=== PATIENT | male | born 1945 | race Caucasian/White ===

== ENCOUNTER 2018-11-20 10:52 | Inpatient (IN) | payer MEDICARE, OTHER ==
[~2018-11-20] VITALS: Ht 186.7 cm; Wt 100.7 kg
[2018-11-20] MEDS: SODIUM CHLORIDE 0.9% 1000ML 1,000 ML IV SCH ×2 (01:00→14:51)
[~2018-11-20 10:52] MED LIST: ADULT LOW DOSE81 MG PO; ANDROGEL 1.62% TD; ATENOLOL25 MG PO; BENICAR HCT 201 EACH PO; BENICAR20 MG PO; CALCIUM600 MG PO; FOLIC ACID0.8 MG PO; GLIPIZIDE XL10 MG PO; GLIPIZIDE10 MG PO; METFORMIN HCL1000 MG PO; PRAVASTATIN SOD20 MG PO; PRAVASTATIN SOD40 MG PO; VIAGRA100 MG PO; VITAMIN A8000 UNIT PO; VITAMIN B-12500 MCG PO; VITAMIN C500 M1 PO; VITAMIN D400 UNI1 PO; VITAMIN E800 UNIT PO; ZINC50 M2 PO
[2018-11-20] MEDS ORDERED: SODIUM CHLORIDE 0.9% 1000ML 1,000 ML IV STA (10:55)
[2018-11-20] MEDS ORDERED: ASPIRIN 81 MG CHEW TAB PO ONE (11:00)
--- NOTE | 2018-11-20 11:53 | Diagnostic Imaging Report ---
A single frontal view of the chest. HISTORY: Fall, vertigo, nausea COMPARISON: None available. DISCUSSION: Portable technique, limits sensitivity of the exam. Overlying artifact. Tubes/Lines: None Lungs and pleura: The lungs are well inflated. No evidence of a consolidative pneumonia or pulmonary alveolar edema. No definite pleural effusion or pneumothorax is identified. Heart and mediastinum: The cardiomediastinal silhouette appear(s) unremarkable. Bones and soft tissues: Appear unremarkable, given this limited exam. IMPRESSION: No acute radiographic abnormality. Signed by: Dr. Arash Cifuentes D.O., M.M.M. on 11/20/2018 11:49 AM
[2018-11-20] MEDS ORDERED: MECLIZINE HCL 12.5 MG TAB PO ONE (12:00)
[2018-11-20] MEDS ORDERED: ONDANSETRON HCL INJ 2MG/ML 2ML 2 MG/ML VIAL IV ONE (12:00)
[2018-11-20 12:22] LABS: BASOPHILS % 0.2 % (0.0-1.0); EOSINOPHILS # (AUTO) 0.1 (0.0-0.4); EOSINOPHILS % 0.9 % (0.0-6.0); HEMATOCRIT 38.3 % (38.2-49.6); HEMOGLOBIN 13.6 g/dL (14.0-18.0); LYMPHOCYTES # (AUTO) 1.4 (1.0-3.2); LYMPHOCYTES % 11.5 % (18.0-39.1); MEAN CORPUSCULAR HEMOGLOBIN 33.3 pg (28-32); MEAN CORPUSCULAR HGB CONC 35.5 g/dL (31-35); MEAN CORPUSCULAR VOLUME 93.6 fL (81-99); MONOCYTES % 7.6 % (4.4-11.3); NEUTROPHILS % 79.4 % (38.7-80.0); PLATELET COUNT 214 x10e3/uL (140-360); RED BLOOD COUNT 4.09 x10e6/uL (4.3-5.7); RED CELL DISTRIBUTION WIDTH 13.2 % (11.7-14.4)
[2018-11-20 12:32] LABS: ALBUMIN/GLOBULIN RATIO 1.4 (0.8-2.0); ANION GAP 19.3 mmol/L (8-16); CREATININE, SERUM 1.27 mg/dL (0.72-1.25); POTASSIUM 4.3 mmol/L (3.5-5.1)
[2018-11-20 12:51] LABS: INR 0.96; PROTHROMBIN TIME 13.3 seconds (11.9-14.5)
[2018-11-20 12:52] LABS: PARTIAL THROMBOPLASTIN TIME 28.9 seconds (23.8-35.5)
[2018-11-20 13:14] LABS: CREATINE KINASE MB 1.6 ng/mL (0-5.0)
--- NOTE | 2018-11-20 13:37 | NUR ---
DR. SALCEDO IN WITH PT TO DISCUSS POC/PENDING ADMIT TO HOSPITAL FOR OBS.
--- NOTE | 2018-11-20 13:37 | Diagnostic Imaging Report ---
History:Nausea, vomiting, vertigo Comparison studies:None Technique: Axial images were obtained from the skull base to the vertex. Coronal and sagittal images reconstructed from the axial data. Intravenous contrast: None Dose modulation, iterative reconstruction, and/or weight based adjustment of the mA/kV was utilized to reduce the radiation dose to as low as reasonably achievable. Findings: Scalp/skull: No abnormalities. Extra-axial spaces: No masses. No fluid collections. Brain sulci: Age-appropriate. Ventricles: Age-appropriate. No hydrocephalus. Parenchyma: No abnormal densities. No masses, hemorrhage, acute or chronic cortical vascular insults. Sellar/suprasellar region: No abnormalities. Craniocervical junction: Patent foramen magnum. No Chiari one malformation. Incidental findings: Mild atherosclerotic calcifications in the carotid siphons . Bilateral cataract surgery changes. Impression: No acute abnormalities. Signed by: DR Kirill Aguirre M.D. on 11/20/2018 1:33 PM
[2018-11-20] MEDS ORDERED: LORATADINE10 MG PO (13:42)
[2018-11-20] MEDS ORDERED: ASPIR 8181 MG PO (13:42)
[2018-11-20] MEDS ORDERED: SPIRONOLACTONE25 MG PO (13:42)
[2018-11-20] MEDS ORDERED: JENTADUETO 2.51 EAC2 PO (13:42)
[2018-11-20] MEDS ORDERED: ZOFRAN4 MG PO (13:42)
[2018-11-20] MEDS ORDERED: ZANTAC150 MG PO (13:42)
[2018-11-20 14:12] LABS: BILIRUBIN,URINE NEGATIVE (NEGATIVE); CLARITY,URINE SL CLOUDY (CLEAR); COLOR,URINE YELLOW (YELLOW); KETONES,URINE 1+ (NEGATIVE); LEUKOCYTE ESTERASE ,URINE NEGATIVE (NEGATIVE); NITRITE,URINE NEGATIVE (NEGATIVE); PROTEIN,URINE DIPSTICK NEGATIVE (NEGATIVE); URINE UROBILINOGEN 0.2 mg/dL (0.2 - 1)
[2018-11-20 14:24] LABS: AMORPHOUS SEDIMENT,URINE FEW (FEW); BACTERIA,URINE RARE /HPF; WBC,URINE (MAN) 0-5 /HPF (0-5)
[2018-11-20] MEDS ORDERED: ONDANSETRON HCL INJ 2MG/ML 2ML 2 MG/ML VIAL IV PRN (14:45)
--- OUTSIDE RECORDS SUMMARY | 2018-11-20 14:59 | XMS REPORT ---
Author [facility] Address Unknown Phone Unavailable Care Team Providers Care Steam Power Plant Operator Name Role Phone Kit SCHMIDT Unavailable Unavailable Problems This patient has no known problems. Allergies, Adverse Reactions, Alerts This patient has no known allergies or adverse reactions. Medications This patient has no known medications. Results Test Description Test Time Test Comments Text Results Atomic Results Result Comments CT BRAIN WO 2018-11-20 13:28:00 [facility] [address] [address] Patient Name: CLAU NORIEGA MR #: [id number] : 1945 Age/Sex: 73/M Req #: [id number] Adm Physician: Ordered by: HENRI KAY PET NUTRITION SPECIALIST Report #: [id number] Location: ER Room/Bed: Procedure: [id number] CT/CT BRAIN WO Exam Date: 11/20/18 Exam Time: 1230 REPORT STATUS: Signed History:Nausea, vomiting, vertigo Comparison studies:None Technique: Axial images were obtained from the skull base to the vertex. Coronal and sagittal images reconstructed from the axial data. Intravenous contrast: None Dose modulation, iterative reconstruction, and/or weight based adjustment of the mA/kV was utilized to reduce the radiation dose to as low as reasonably achievable. Findings: Scalp/skull: No abnormalities. Extra-axial spaces: No masses. No fluid collections. Brain sulci: Age-appropriate. Ventricles: Age-appropriate. No hydrocephalus. Parenchyma: No abnormal densities. No masses, hemorrhage, acute or chronic cortical vascular insults. Sellar/suprasellar region: No abnormalities. Craniocervical junction: Patent foramen magnum. No Chiari one malformation. Incidental findings: Mild atherosclerotic calcifications in the carotid siphons . Bilateral cataract surgery changes. Impression: No acute abnormalities. Signed by: DR Kirill Aguirre M.D. on 11/20/2018 1:33 PM Dictated By: KIRILL HERNANDEZ MD 1333 Transcribed By: DAVID on 11/20/18 1333 COPY TO: HENRI KAY NP CHEST SINGLE (PORTABLE) 2018-11-20 11:43:00 [address] [address] Patient Name: CLAU NORIEGA MR #: [id number] : 1945 Age/Sex: 73/M Req #: [id number] Adm Physician: Ordered by: HENRI KAY PET NUTRITION SPECIALIST Report #: [id number] Location: ER Room/Bed: Procedure: [id number] DX/CHEST SINGLE (PORTABLE) Exam Date: 11/20/18 Exam Time: 1110 REPORT STATUS: Signed A single frontal view of the chest. HISTORY: Fall, vertigo, nausea COMPARISON: None available. DISCUSSION: Portable technique, limits sensitivity of the exam. Overlying artifact. Tubes/Lines: None Lungs and pleura: The lungs are well inflated. No evidence of a consolidative pneumonia or pulmonary alveolar edema. No definite pleural effusion or pneumothorax is identified. Heart and mediastinum: The cardiomediastinal silhouette appear(s) unremarkable. Bones and soft tissues: Appear unremarkable, given this limited exam. IMPRESSION: No acute radiographic abnormality. Signed by: Dr. Mana Cifuentes D.O., M.M.M. on 11/20/2018 11:49 AM Dictated By: MANA CIFUENTES DO 1149 Transcribed By: DAVID on 11/20/18 1149 COPY TO: HENRI KAY NP
--- NOTE | 2018-11-20 15:37 | NUR ---
TELE #20 PLACED ON THE PT
[2018-11-20 16:15] VITALS: BP 108/55
--- NOTE | 2018-11-20 16:20 | NUR ---
Received patient from ER. In stable condition, no c/o of pain or signs of distress at this time. Twin brother at bedside. Patient oriented to room. Bed locked and in low position, call light placed within reach. Will continue to monitor.
[2018-11-20 16:21] VITALS: BP 108/55
[2018-11-20 16:22] VITALS: BP 108/55
[2018-11-20] MEDS ORDERED: MECLIZINE HCL12.5 MG PO (16:43)
[2018-11-20] MEDS: INSULIN LISPRO 100 UNIT/1 ML 3ML VIAL SQ SCH ×2 (17:15→21:50)
[2018-11-20] MEDS ORDERED: DEXTROSE 50% SYRINGE 50 ML IV PRN (17:15)
--- NOTE | 2018-11-20 19:15 | NUR ---
Bedside report given to night nurse. Patient resting in bed, no c/o of pain or signs of distress at this time. Bed locked and in low position, call light placed within reach. Twin brother at bedside.
--- NOTE | 2018-11-20 19:45 | NUR ---
PATIENT AOX3, NO SIGNS OF DISTRESS NOTED. FAMILY MEMBER AT BEDSIDE, IV RUNNING AT ORDERED RATE. BED IS LOCKED AND IN LOWEST POSITION, SIDE RAILS ARE UP, CALL LIGHT WITHIN REACH, WILL CONTINUE TO MONITOR.
[2018-11-20 20:00] VITALS: BP 124/97
[2018-11-20 21:50] VITALS: BP 124/97
[2018-11-21] VITALS (9 sets, daily range): BP systolic 104–150; BP diastolic 56–79
[2018-11-21 05:49] LABS: BASOPHILS % 0.6 % (0.0-1.0); EOSINOPHILS # (AUTO) 0.3 (0.0-0.4); EOSINOPHILS % 3.8 % (0.0-6.0); HEMATOCRIT 39.1 % (38.2-49.6); HEMOGLOBIN 12.1 g/dL (14.0-18.0); LYMPHOCYTES # (AUTO) 1.5 (1.0-3.2); LYMPHOCYTES % 21.2 % (18.0-39.1); MEAN CORPUSCULAR HEMOGLOBIN 24.9 pg (28-32); MEAN CORPUSCULAR HGB CONC 30.9 g/dL (31-35); MEAN CORPUSCULAR VOLUME 80.6 fL (81-99); MONOCYTES # (AUTO) 0.6 (0.2-0.8); MONOCYTES % 8.4 % (4.4-11.3); NEUTROPHILS # (AUTO) 4.6 (2.1-6.9); NEUTROPHILS % 65.6 % (38.7-80.0); PLATELET COUNT 210 x10e3/uL (140-360); RED BLOOD COUNT 4.85 x10e6/uL (4.3-5.7); RED CELL DISTRIBUTION WIDTH 18.4 % (11.7-14.4)
[2018-11-21 06:12] LABS: ALBUMIN 3.5 g/dL (3.5-5.0); ALBUMIN/GLOBULIN RATIO 0.9 (0.8-2.0); ANION GAP 17.5 mmol/L (8-16); CALCIUM 10.2 mg/dL (8.4-10.2); CREATININE, SERUM 1.34 mg/dL (0.72-1.25); POTASSIUM 4.5 mmol/L (3.5-5.1)
--- NOTE | 2018-11-21 07:12 | NUR ---
Received bedside report from night nurse. Patient resting in bed, no signs of distress or complaints at this time. Bed locked and in low position, call light placed within reach. Will continue to monitor.
[2018-11-21] MEDS ORDERED: FAMOTIDINE 20 MG TAB PO PRN (07:15)
[2018-11-21] MEDS: MECLIZINE HCL 12.5 MG TAB PO SCH ×3 (07:15→22:00)
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
[2018-11-21 07:29] LABS: CHOL/HDL RATIO 3.8 (3.9-4.7)
[2018-11-21] MEDS: SPIRONOLACTONE 25 MG TAB PO SCH ×2 (09:06→21:15)
[2018-11-21] MEDS: LORATADINE 10 MG TAB PO SCH (09:07)
[2018-11-21] MEDS: ASPIRIN 81 MG CHEW TAB PO SCH (09:07)
[2018-11-21] MEDS: LEVOFLOXACIN 500MG/D5W 100ML 100 ML IV SCH (09:10)
[2018-11-21] MEDS: SODIUM CHLORIDE 0.9% 1000ML 1,000 ML IV SCH ×2 (09:10→19:19)
[2018-11-21] MEDS: INSULIN LISPRO 100 UNIT/1 ML 3ML VIAL SQ SCH ×4 (09:13→21:00)
[2018-11-21] MEDS ORDERED: ONDANSETRON HCL 4 MG ORAL DISINTEGRATING TAB PO PRN (14:15)
--- NOTE | 2018-11-21 14:30 | NUR ---
Visit made by the Spiritual Care Department Pastoral Visitor, Kasandra Corley. PV provided pastoral presence, prayer, hospitality, and supportive listening. Pastoral Visitor informed pt/family of the scope of Chemistry Quality Control Analyst Services and availability. DIMITRY DIETRICH Lead Trainer Spiritual Care Department O: [phone] Pager: [phone] ([phone] number calling from)
--- NOTE | 2018-11-21 14:49 | NUR ---
Nutrition Screen Note RD Recommendation for Physician: - Continue current diet Plan of Care: RD following, monitoring for tolerance and adequacy Nutrition reason for involvement: Nutrition Risk Trigger- MST2 Primary Diagnose(s): dizziness, meniere disease PMH: [facility] Pt reports DM. Ht: 73.5 in in Wt: 222 lb BMI: 28.9 kg/m2 IBW: [address] Assessment: (11/21) 73 YOM admitted for dizziness and Menierre disease with no PMH recorded in [facility] at this time. Pt seen today per MST screen. Pt reports dizziness and nausea have resolved and he it tolerating diet and eating well. Pt denies any GI distress prior to this episode and denies wt loss, reports UBW of 215#. Chart reviewed. Labs and meds reviewed, elevated BG and A1C noted. Pt states he was eating things he knows he shouldn't and the he "knows what to do, I just need to get back to doing it" and states that his A1C is typically well controlled around 6.2. Will monitor and continue to follow. Current Diet: 1800 ADA Malnutrition Evaluation (11/21/18) The patient does not meet criteria for a specified degree of malnutrition at this time. Will re-evaluate at follow-up as appropriate. Diet Education Needs Assessment: Diet education not indicated at this time. Nutrition Care Level: Low Signed: Stacey Sinha RD, LD, [facility]
--- NOTE | 2018-11-21 19:15 | NUR ---
patient received awake, alert, lying quietly in bed. no c/o pain noted. ivf continue to infuse without difficulty. respirations even and unlabored. pm assessment complete. patient instructed to call for assistance when neede.
--- NOTE | 2018-11-21 19:16 | NUR ---
Bedside report given to night nurse. Patient in stable condition. All safety measures in place.
[2018-11-21] MEDS ORDERED: PRAVASTATIN 20 MG TAB PO SCH (21:00)
[2018-11-21] MEDS: SIMVASTATIN 20 MG TAB PO SCH (21:15)
[2018-11-21] MEDS: ATENOLOL 50 MG TAB PO SCH (21:15)
[2018-11-22] VITALS (7 sets, daily range): BP systolic 131–152; BP diastolic 76–95
[2018-11-22] MEDS: SODIUM CHLORIDE 0.9% 1000ML 1,000 ML IV SCH ×3 (03:34→15:23)
[2018-11-22] MEDS: MECLIZINE HCL 12.5 MG TAB PO SCH ×2 (05:33→14:55)
--- NOTE | 2018-11-22 06:26 | NUR ---
D/C Summary Principal Dx: IRENA UTI with Enterococcus Meniere's ds flare [place] Dx: HTN HLD DM2 PLAN: ivf; iv abx meclizine home meds; hba1c/lipids SCD dispo: 11/22 leukocytosis resolved; cont abx; d/c planning; check renal fn d/c home f/u pcp 1 week stable d/c>35mins Chapo Johnson MD, PhD.
[2018-11-22] MEDS: INSULIN LISPRO 100 UNIT/1 ML 3ML VIAL SQ SCH ×4 (07:30→19:59)
[2018-11-22 07:55] LABS: ANION GAP 13.1 mmol/L (8-16); CALCIUM 9.4 mg/dL (8.4-10.2); CREATININE, SERUM 1.23 mg/dL (0.72-1.25); POTASSIUM 4.1 mmol/L (3.5-5.1)
[2018-11-22] MEDS: LORATADINE 10 MG TAB PO SCH (08:31)
[2018-11-22] MEDS: LEVOFLOXACIN 500MG/D5W 100ML 100 ML IV SCH (08:31)
[2018-11-22] MEDS: SPIRONOLACTONE 25 MG TAB PO SCH ×2 (08:31→19:50)
[2018-11-22] MEDS: ASPIRIN 81 MG CHEW TAB PO SCH (08:31)
--- NOTE | 2018-11-22 15:23 | NUR ---
New IV administered at this time, L hand 20g. Patent, No swelling or redness to insertion site. Pt tolerated well.
[2018-11-22] MEDS ORDERED: Meclizine Hcl PO (19:07)
[2018-11-22] MEDS ORDERED: CIPRO500 MG PO (19:07)
[2018-11-22] MEDS: SIMVASTATIN 20 MG TAB PO SCH (20:00)
[2018-11-22] MEDS: ATENOLOL 50 MG TAB PO SCH (20:00)
--- NOTE | 2018-11-22 20:40 | NUR ---
Pt signed discharge papers. Pt aware of discharge instructions (see PCP in 1 week) and aware Dr. Johnson sent electronic prescription to [facility] at [facility].
--- NOTE | 2018-11-22 21:00 | NUR ---
IV on left hand taken out since patient is discharged (per MD order). Telemetry box (#20) returned to tele office.
--- NOTE | 2018-11-22 21:15 | NUR ---
Patient escorted via wheelchair downstairs. Pt went home with via private vehicle. Pt left hospital in stable condition.
== END 2018-11-22 21:16 | disposition home or self-care (01) | DRG 872 ==
LOC: ER 10:52 → ERHOLD 14:57 → MED/SURG3 15:45 → OBSVTOIN 11-21 07:17 → MED/SURG 11-21 17:20 → MED/SURG3 11-21 17:21
PROVIDERS: ADMIT Internal Medicine; ATTEND Internal Medicine
DX: A41.81 Sepsis due to Enterococcus (principal); N17.9 Acute kidney failure, unspecified; N39.0 Urinary tract infection, site not specified; B95.2 Enterococcus as the cause of diseases classified elsewhere; H81.09 Meniere's disease, unspecified ear; I10 Essential (primary) hypertension; E78.5 Hyperlipidemia, unspecified; E11.9 Type 2 diabetes mellitus without complications; Z88.2 Allergy status to sulfonamides; Z79.82 Long term (current) use of aspirin; Z79.84 Long term (current) use of oral hypoglycemic drugs
CPT/HCPCS: 36415; 70450; 71045; 80048; 80053; 80061; 81001; 82550; 82553; 82948; 83036; 83880; 84484; 85025; 85610; 85730; 87086; 87186; 93005; 99284; G0378; J1956; J2405; J7030

== ENCOUNTER 2019-02-05 16:19 | Emergency (ER) | payer MEDICARE, OTHER ==
[~2019-02-05] VITALS: Ht 186.7 cm; Wt 99.8 kg
[~2019-02-05 16:19] MED LIST changes: +ASPIR 8181 MG PO; +CIPRO500 MG PO; +JENTADUETO 2.51 EAC2 PO; +LORATADINE10 MG PO; +MECLIZINE HCL12.5 MG PO; +Meclizine Hcl PO; +SPIRONOLACTONE25 MG PO; +ZANTAC150 MG PO; +ZOFRAN4 MG PO
[2019-02-05] MEDS ORDERED: SODIUM CHLORIDE 0.9% 1000ML 1,000 ML IV SCH (17:45)
[2019-02-05] MEDS ORDERED: MECLIZINE HCL 12.5 MG TAB PO ONE (18:00)
[2019-02-05] MEDS ORDERED: METOCLOPRAMIDE HCL 10 MG/2ML VIAL IV ONE (18:00)
[2019-02-05] MEDS ORDERED: SCOPOLAMINE 1.5 MG PATCH TOP ONE (18:00)
[2019-02-05 18:16] LABS: BILIRUBIN,URINE NEGATIVE (NEGATIVE); CLARITY,URINE SL CLOUDY (CLEAR); COLOR,URINE YELLOW (YELLOW); KETONES,URINE TRACE (NEGATIVE); LEUKOCYTE ESTERASE ,URINE TRACE (NEGATIVE); NITRITE,URINE NEGATIVE (NEGATIVE); PROTEIN,URINE DIPSTICK NEGATIVE (NEGATIVE); URINE UROBILINOGEN 0.2 mg/dL (0.2 - 1)
[2019-02-05 18:30] LABS: WBC,URINE (MAN) 0-5 /HPF (0-5)
[2019-02-05 18:31] LABS: BACTERIA,URINE FEW /HPF; EPITHELIAL CELLS,URINE RARE /LPF
--- NOTE | 2019-02-05 18:42 | Diagnostic Imaging Report ---
Exam: Head CT without contrast History: Fall, vertigo, nausea, vomiting Comparison studies: Head CT 11/20/2018 Technique: Axial images were obtained from the skull base to the vertex. Coronal and sagittal images reconstructed from the axial data. Dose modulation, iterative reconstruction, and/or weight based adjustment of the mA/kV was utilized to reduce the radiation dose to as low as reasonably achievable. Radiation dose: Total DLP: 1036 mGy*cm. Estimated effective dose: DLP x 0.015 Intravenous contrast: None Findings: Scalp: No abnormalities. Bones: No fractures, blastic or lytic lesions. Brain sulci: Mildly prominent, but age-appropriate. Ventricles: Normal in size and configuration. No hydrocephalus. Extra-axial spaces: No masses, no fluid collection. Parenchyma: No abnormal densities. No masses, acute hemorrhage, acute or chronic vascular insults. Sellar/suprasellar region: No abnormalities. Craniocervical junction: Patent foramen magnum. No Chiari one malformation. Incidental findings: Lens replacements for previous cataract surgery. Chronic sclerotic changes at the right mastoid tip. Atherosclerotic calcifications in the carotid siphons and intradural vertebral arteries. IMPRESSION: 1. No acute abnormalities. 2. No changes from the prior head CT of 11/20/2018. Signed by: Dr. Alex Sage M.D. on 02/05/2019 6:38 PM
[2019-02-05 18:48] LABS: BASOPHILS % 0.3 % (0.0-1.0); EOSINOPHILS % 0.1 % (0.0-6.0); HEMATOCRIT 40.1 % (38.2-49.6); HEMOGLOBIN 13.9 g/dL (14.0-18.0); LYMPHOCYTES # (AUTO) 1.3 (1.0-3.2); LYMPHOCYTES % 8.5 % (18.0-39.1); MEAN CORPUSCULAR HEMOGLOBIN 32.6 pg (28-32); MEAN CORPUSCULAR HGB CONC 34.7 g/dL (31-35); MEAN CORPUSCULAR VOLUME 93.9 fL (81-99); MONOCYTES % 6.5 % (4.4-11.3); NEUTROPHILS # (AUTO) 12.5 (2.1-6.9); PLATELET COUNT 209 x10e3/uL (140-360); RED BLOOD COUNT 4.27 x10e6/uL (4.3-5.7); RED CELL DISTRIBUTION WIDTH 12.9 % (11.7-14.4)
--- NOTE | 2019-02-05 18:54 | Diagnostic Imaging Report ---
EXAM: CHEST 2 VIEWS DATE: 02/05/2019 5:31 PM INDICATION: ^Syncope ^[id number] ^1820 COMPARISON: Chest x-ray, 11/20/2018 FINDINGS: Lines and tubes: None Heart size normal. No focal pulmonary opacity, pleural effusion or pneumothorax. Upper abdomen unremarkable. No acute bony abnormality. IMPRESSION: No evidence for acute disease. Signed by: Dr. Hernan Amaro M.D. on 02/05/2019 6:51 PM
[2019-02-05 19:07] LABS: ALBUMIN 4.2 g/dL (3.5-5.0); ALBUMIN/GLOBULIN RATIO 1.4 (0.8-2.0); ANION GAP 14.2 mmol/L (8-16); CREATININE, SERUM 1.23 mg/dL (0.72-1.25); POTASSIUM 4.2 mmol/L (3.5-5.1)
[2019-02-05 19:30] LABS: MAGNESIUM 1.6 MG/DL (1.3-2.1); PHOSPHORUS 2.8 MG/DL (2.3-4.7)
[2019-02-05] MEDS ORDERED: SODIUM CHLORIDE 0.9% 1000ML 1,000 ML IV STA (19:55)
[2019-02-05 20:52] VITALS: BP 121/76
== END 2019-02-05 21:20 | disposition home or self-care (01) ==
LOC: ER 16:19
DX: R55 Syncope and collapse (principal); R53.1 Weakness; R42 Dizziness and giddiness; R11.2 Nausea with vomiting, unspecified
CPT/HCPCS: 36415; 70450; 71046; 80053; 81001; 83735; 83880; 84100; 84484; 85025; 87086; 93005; 99284; J2765; J7030; J8597

== ENCOUNTER → 2021-12-09 | Outpatient (CLI) | payer MEDICARE | LOC: CT 13:19 | PROVIDERS: ATTEND Urology | DX: N21.0 Calculus in bladder (principal) | CPT/HCPCS: 74176 ==